=== PATIENT | female | born 1950 | race Caucasian/White ===

== ENCOUNTER 2018-01-15 13:28 | Outpatient (CLI) | payer BC | END 2018-01-15 13:29 | disposition home or self-care (01) | LOC: BICMAMMO 13:28 | PROVIDERS: ATTEND Nurse Practitioner Family | DX: Z12.31 Encounter for screening mammogram for malignant neoplasm of breast (principal); R92.1 Mammographic calcification found on diagnostic imaging of breast; Z80.3 Family history of malignant neoplasm of breast | CPT/HCPCS: 77063; 77067 ==

== ENCOUNTER 2018-06-08 10:15 | Outpatient (CLI) | payer BC ==
--- NOTE | 2018-06-08 10:28 | RAD ---
TWO VIEW CHEST: Comparison: None. Indication: Cough. FINDINGS: There is patchy consolidation at the lateral aspect of the right middle lobe. Left lung is clear. Car diac silhouette is within normal in size. Mild vascular calcification is seen. IMPRESSION: Focal consolidation involving the lateral aspect of the right middle lobe compatible with pneumonia. POS: [facility]
== END 2018-06-08 10:16 | disposition home or self-care (01) ==
LOC: RAD-FRANK 10:15
PROVIDERS: ATTEND Nurse Practitioner Family
DX: R05 Cough (principal)
CPT/HCPCS: 71046

== ENCOUNTER 2018-06-11 08:12 | Outpatient (CLI) | payer BC ==
--- NOTE | 2018-06-11 09:11 | RAD ---
CHEST TWO VIEWS: HISTORY: Bronchitis followup. COMPARISON: Radiograph from 06/08/2018. FINDINGS: Interval improvement in right middle lobe opacity. No pneumothorax. No effusion. No acute osseous abnormality. Multiple Schmorl's nodes in the spine. IMPRESSION: Interval resolution and improvement of right middle lobe pneumonia. POS: [facility]
== END 2018-06-11 08:13 | disposition home or self-care (01) ==
LOC: RAD-FRANK 08:12
PROVIDERS: ATTEND Nurse Practitioner Family
DX: J40 Bronchitis, not specified as acute or chronic (principal); J18.9 Pneumonia, unspecified organism
CPT/HCPCS: 71046

== ENCOUNTER 2019-10-10 09:36 | Outpatient (CLI) | payer MEDICARE, BC ==
--- NOTE | 2019-10-10 10:10 | MMO ---
Bilateral MAMMO Bilat Screen [facility]. CLINICAL HISTORY: Patient is 68 years old and is seen for screening. The patient has the following family history of breast cancer: mother, at age 67, malignant (generic). The patient has no personal history of cancer. The patient has a history of left Excisional Biopsy in ? - benign. VIEWS: The views performed were: bilateral craniocaudal with tomosynthesis and bilateral mediolateral oblique with tomosynthesis. FILMS COMPARED: The present examination has been compared to prior imaging studies performed at [facility] on 10/03/2014, 04/30/2016 and 01/15/2018, and at [facility] on 09/21/2012. This study has been interpreted with the assistance of computer-aided detection. MAMMOGRAM FINDINGS: The breasts are heterogeneously dense, which could obscure a lesion on mammography. There are no suspicious masses, suspicious calcifications, or new areas of architectural distortion. IMPRESSION: THERE IS NO MAMMOGRAPHIC EVIDENCE OF MALIGNANCY. A ROUTINE FOLLOW-UP MAMMOGRAM IN 1 YEAR IS RECOMMENDED. THE RESULTS OF THIS EXAM WERE SENT TO THE PATIENT. ACR BI-RADS Category 1 - Negative MAMMOGRAPHY NOTE: 1. A negative mammogram report should not delay a biopsy if a dominant of clinically suspicious mass is present. 2. Approximately 10% to 15% of breast cancers are not detected by mammography. 3. Adenosis and dense breasts may obscure an underlying neoplasm. Reported by: DARRELL TRUONG MD Electonically Signed: [id number]
== END 2019-10-10 09:37 | disposition home or self-care (01) ==
LOC: BICMAMMO 09:36
PROVIDERS: ATTEND Nurse Practitioner Family
DX: Z12.31 Encounter for screening mammogram for malignant neoplasm of breast (principal); Z80.3 Family history of malignant neoplasm of breast
CPT/HCPCS: 77063; 77067

== ENCOUNTER 2020-09-25 14:43 | Outpatient (CLI) | payer MEDICARE, BC | END 2020-09-25 14:44 | disposition home or self-care (01) | LOC: RAD-FRANK 14:43 | PROVIDERS: ATTEND Nurse Practitioner Family | DX: R07.89 Other chest pain (principal) | CPT/HCPCS: 71046 ==

== ENCOUNTER 2021-03-06 10:42 | Outpatient (CLI) | payer MEDICARE, BC | END 2021-03-06 10:43 | disposition home or self-care (01) | LOC: BICMAMMO 10:42 | PROVIDERS: ATTEND Nurse Practitioner Family | DX: Z12.31 Encounter for screening mammogram for malignant neoplasm of breast (principal); Z80.3 Family history of malignant neoplasm of breast; Z91.89 Other specified personal risk factors, not elsewhere classified | CPT/HCPCS: 77063; 77067 ==

== ENCOUNTER 2022-08-29 09:41 | Outpatient (CLI) | payer MEDICARE, BC | END 2022-08-29 09:42 | disposition home or self-care (01) | LOC: BICMAMMO 09:41 | PROVIDERS: ATTEND Nurse Practitioner Family | DX: Z12.31 Encounter for screening mammogram for malignant neoplasm of breast (principal); Z91.89 Other specified personal risk factors, not elsewhere classified; Z80.3 Family history of malignant neoplasm of breast | CPT/HCPCS: 77063; 77067 ==

== ENCOUNTER 2025-02-24 09:52 | Outpatient (CLI) | payer MEDICARE, BC | END 2025-02-24 09:53 | disposition home or self-care (01) | LOC: BICMAMMO 09:52 | PROVIDERS: ATTEND Nurse Practitioner Family | DX: Z12.31 Encounter for screening mammogram for malignant neoplasm of breast (principal); N64.89 Other specified disorders of breast; Z80.3 Family history of malignant neoplasm of breast | CPT/HCPCS: 77063; 77067 ==